=== PATIENT | female | born 1960 | race Caucasian/White ===

== ENCOUNTER → 2022-06-10 12:02 | Outpatient (CLI) | payer BC, SELFPAY ==
--- NOTE | 2022-06-10 11:29 | DI.RAD_ITS ---
Exam(s) XR FOOT LT COMPLETE EXAM: XR FOOT LT COMPLETE CLINICAL HISTORY: pain,PERONEAL TENDINITIS, M79.673,M76.70. TECHNIQUE: 2D digital imaging was performed. COMPARISON: No exams were available for comparison FINDINGS: Five views: No evidence of fracture or diastasis of the Lisfranc joint. Hallux valgus is noted. Some degenerati ve change in the 1st metatarsophalangeal joint. No osseous lesions nor erosions. No inferior calcan eal spur. There is enthesophyte at the insertional aspect of the Achilles tendon on the posterior ca lcaneus. No osseous tarsal coalition. IMPRESSION: As above. Hallux valgus evident. DATA REPOSITORY: RADIATION DOSE DELIVERED:
== END ==
PROVIDERS: PCP Nurse Practitioner Family; Visit Provider Podiatrist Foot & Ankle Surgery
DX: M20.12 Hallux valgus (acquired), left foot
CPT/HCPCS: 73630